=== PATIENT | female | born 1970 | race Two or more races ===

== ENCOUNTER 2025-05-02 20:21 | Emergency (ER) | payer SELFPAY ==
[~2025-05-02] VITALS: Ht 167.6 cm; Wt 77.0 kg
[2025-05-02 20:37] VITALS: PULSE 73; RESP 22; O2SAT 98
[2025-05-02 20:40] VITALS: TEMP 98
--- NOTE | 2025-05-02 22:00 | ED.PDOC ---
Foreign Body HPI Comments 55-year-old female brought in by spouse, patient was eating [employer] steak bites , she developed when get stuck in her chest, she has tried coughing and has been did Heimlich causing the piece to come up partially. Patient now feels as though the PCP it starts by her trachea. She can not swallow her spit. Can not swallow. Patient breathing well. No stridor. 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 Constitutional: denies: chills, diaphoresis, fatigue, fever, malaise, sweats, weakness, others EENTM: denies: blurred vision, double vision, ear bleeding, ear discharge, ear drainage, ear pain, ear ringing, eye pain, eye redness, hearing loss, mouth pain, mouth swelling, nasal discharge, nose bleeding, nose congestion, nose pain, photophobia, tearing, throat pain, throat swelling, voice changes, others Respiratory: denies: cough, hemoptysis, orthopnea, SOB at rest, shortness of breath, SOB with excertion, stridor, wheezing, others Cardiovascular: denies: chest pain, dizzy spells, diaphoresis, Dyspnea on exertion, edema, irregular heart beat, left arm pain, lightheadedness, palpitations, PND, syncope, others Gastrointestinal: reports: difficulty swallowing, nausea Genitourinary: denies: abnormal vagina bleeding, burning, dyspareunia, dysuria, flank pain, frequency, hematuria, incontinence, pain, , vagina discharge, urgency, others Neurological: denies: dizziness, fainting, headache, left sided numbness, left sided weakness, numbness, paresthesia, pre-existing deficit, right sided numbness, right sided weakness, seizure, speech problems, tingling, tremors, weakness, others Physical Exam General Appearance: Moderate Distress, Normal HEENT: Normal ENT Inspection, TMs Normal, Other (Patient unable to swallow saliva) Neck: Full Range of Motion, Non-Tender, Normal, Normal Inspection Respiratory: Chest Non-Tender, Lungs Clear, No Accessory Muscle Use, No Respiratory Distress, Normal Breath Sounds Cardiovascular: No Edema, No JVD, No Murmur, No Gallop, Normal Peripheral Pulses, Regular Rate/Rhythm Breast Exam: Deferred Gastrointestinal: No Organomegaly, Non Tender, No Pulsatile Mass, Normal Bowel Sounds, Soft Genitalia: Deferred Pelvic: Deferred Rectal: Deferred Extremities: No calf tenderness, Normal capillary refill, Normal inspection, Normal range of motion, Non-tender, No pedal edema Musculoskeletal : Apperance: Normal Neurologic: Alert, kidney trimmer II-XII nml as Tested, No Motor Deficits, Normal Affect, Normal Mood, No Sensory Deficits Cerebellar Function: Normal Reflexes: Normal Skin: Dry, Normal Color, Warm Lymphatic: No Adenopathy Was a procedure done? Was a procedure done?: No FB Differential Dx Differential Diagnosis: Foreign Body X-Ray, Labs, Meds, VS Vital Signs Date Time Temp Pulse Resp B/P (MAP) Pulse Ox O2 Delivery O2 Flow Rate FiO2 05/02/25 20:40 98.0 93 24 142/76 89 98.0 05/02/25 20:37 98.4 73 22 130/88 (102) 98 98.4 05/02/25 20:37 73 22 98 Nasal Cannula* 2 28 X-Ray, Labs, Meds, VS Comment Spoke with Dr. Toro, GI on-call. She will schedule patient for endoscopy in the morning She recommends additional round of glucagon, 40 mg of Pepcid IV, 0.5 mg Ativan IV Patient be started on normal saline bolus Airway patent, hemodynamically stable Time of 1ST Reevaluation: 21:59 Reevaluation 1ST: Unchanged Patient Education/Counseling: Diagnosis, Treatment Family Education/Counseling: Diagnosis Departure 1 Departure Time of Disposition: 21:58 Impression: Primary Impression: Foreign body in esophagus Qualified Codes: T18.108A - Unspecified foreign body in esophagus causing other injury, initial encounter Disposition: ADMITTED INPATIENT Condition: Stable Discharged With: Relative Critical Care Note Critical Care Time?: No Stability Stability form required: No Heart Score Heart Score: Heart Score Response (Comments) Value History N/A 0 EKG N/A 0 Age N/A 0 Risk Factors N/A 0 Troponin N/A 0 Total 0 VETO JOSEPH May 02, 2025 22:00
[2025-05-02] MEDS: PANTOPRAZOLE 40 MG/10 ML VIAL INJ IV ONE (22:06)
[2025-05-02] MEDS: GLUCAGON EMERG KIT 1mg/1ml IV ONE (22:06)
[2025-05-02] MEDS: LORazepam 2MG/ML-1ML VIAL IV ONE (22:07)
[2025-05-02 23:00] VITALS: BP 107/66; PULSE 67; RESP 14; O2SAT 99
== END 2025-05-02 23:51 | disposition home or self-care (01) ==
LOC: ER 20:21
DX: T18.108A Unspecified foreign body in esophagus causing other injury, initial encounter (principal); W44.9XXA Unspecified foreign body entering into or through a natural orifice, initial encounter; Y93.89 Activity, other specified; Y92.89 Other specified places as the place of occurrence of the external cause; Y99.8 Other external cause status
CPT/HCPCS: 96374; 96375; 99284; J1610; J2060; J2470